=== PATIENT | female | born 1960 | race Caucasian/White ===

== ENCOUNTER 2019-09-20 03:59 | Emergency (ER) | payer OTHER, MEDICARE, SELFPAY ==
[2019-09-20] VITALS (14 sets, daily range): BP systolic 134–178; BP diastolic 76–88; PULSE 56–92; RESP 11–16; TEMP 36.4–37.1; O2SAT 93–100; BMI 41.9; BMI 42.7
--- NOTE | 2019-09-20 04:00 | XR_ITS ---
PROCEDURE: XR CHEST PORTABLE CLINICAL HISTORY: fall during seizure Posttraumatic pain COMPARISON: No exams were available for comparison FINDINGS: Mild cardiomegaly without failure. There is a nasogastric tube present. The tip the tube is not covered on the film but is below the GE junction. No lobar consolidation or collapse. There are low lung volumes. No acute bony abnormalities. IMPRESSION: Cardiomegaly with NG tube present. Dictated by: Dakota Huff MD 09/20/2019 07:58 Electronically signed by Dakota Huff MD in [facility] 09/20/2019 07:58
--- NOTE | 2019-09-20 04:00 | XR_ITS ---
PROCEDURE: XR PELVIS 1-2V CLINICAL INDICATION: fall during seizure Posttraumatic pain, trauma protocol COMPARISON: No exams were available for comparison TECHNIQUE: XR Pelvis AP View FINDINGS: No fracture or dislocation is evident. No significant degenerative change. Sanchez catheter is present IMPRESSION: No acute findings. Dictated by: Dakota Huff MD 09/20/2019 07:57 Electronically signed by Dakota Huff MD in [facility] 09/20/2019 07:57
--- NOTE | 2019-09-20 04:00 | CT_ITS ---
PROCEDURE: CT HEAD/BRAIN WO CON CLINICAL INDICATION: ams, seizures Altered mental status, altered level of consciousness, confusion, disorientation, history of surgery and aneurysm COMPARISON: CT CERVICAL SPINE WO CON from 09/20/2019 TECHNIQUE: Axial images obtained. All CT scans at the facility use one or more dose reduction, viz: automated exposure control, ma/kV adjustment per patient size (including targeted exams where dose is matched to indication, i.e. head), or iterative reconstruction technique. FINDINGS: There has been prior right temporal craniectomy. Artifact is present from aneurysm clips in the sellar region. No midline shift, mass effect, intracranial hemorrhage, or hydrocephalus is evident. There is a nasogastric tube and an endotracheal tube present. IMPRESSION: 1. Postsurgical changes. 2. No acute intracranial findings. Dictated by: Dakota Huff MD 09/20/2019 10:24 Electronically signed by Dakota Huff MD in [facility] 09/20/2019 10:24
--- NOTE | 2019-09-20 04:01 | ECG_ITS ---
APPROVED REPORT Exam: Resting ECG HR:66 bpm ECG Measurements Heart Rate 66 AXES NV 162 P 56 QRSd 98 QRS -77 QT 462 T 14 QTc 484 <Conclusion> Sinus rhythm with premature ventricular complexes or fusion complexes Left axis deviation Cannot rule out Anterior infarct, age undetermined Abnormal ECG Electronically signed by : Jose Vieira, 09/20/2019 15:34:08
--- NOTE | 2019-09-20 04:01 | PC.NURSE ---
radiology notified of ct head and orders. spoke with jaqueline
--- NOTE | 2019-09-20 04:01 | CT_ITS ---
PROCEDURE: CT CERVICAL SPINE WO CON CLINICAL INDICATION: fall during seizure Neck injury with pain, contusion/abrasion or hematoma, cervical sprain/strain the COMPARISON: No exams were available for comparison TECHNIQUE: Axial images obtained with sagittal and coronal reformats. All CT scans at the facility use one or more dose reduction, viz: automated exposure control, ma/kV adjustment per patient size (including targeted exams where dose is matched to indication, i.e. head), or iterative reconstruction technique. Axial spiral CT scanning performed of the cervical spine beginning at the base of the skull and continuing to the upper T-spine. 3-D multiplanar reconstruction with 3-D manipulation of volumetric data set in image rendering was completed by the radiologist and/or technologist with the supervision of the radiologist on independent workstation. FINDINGS: Normal alignment. No acute fracture or dislocation. Degenerative disc disease C5-C6 and C6-C7. There is canal stenosis at both levels with mild bilateral foraminal narrowing. There is a nasogastric tube present. There is also a cannula extending from the right nostril into the oropharynx. Lung apices are clear. IMPRESSION: 1. No acute fracture. 2. Degenerative changes Dictated by: Dakota Huff MD 09/20/2019 10:28 Electronically signed by Dakota Huff MD in [facility] 09/20/2019 10:28
--- NOTE | 2019-09-20 04:05 | PC.NURSE ---
pt to radiology, consumer insights specialist at bedside
--- NOTE | 2019-09-20 04:06 | PC.NURSE ---
NG tube placed into left nare by RONN Torres Nasal trumpet inserted by RONN Torres into right nare
--- NOTE | 2019-09-20 04:08 | PC.NURSE ---
spoke with antonia, pharmacy re: silvia marques
--- NOTE | 2019-09-20 04:11 | PC.NURSE ---
pt is unresponsive to painful stimuli at this time and is unable to communicate or answer history questions
[2019-09-20 04:14] LABS: Microscopic, Urine URINE MICROSCOPIC (MICROSCOPIC)
[2019-09-20 04:15] LABS: ABG Base Excess -7.1 mmol/L (-2.4-2.3); ABG HCO3 20.5 mmhg (22.0-26.0); ABG Oxygen Saturation 98 % (90-100); ABG PH 7.22 mmol/L (7.35-7.45); ABG PO2 141.3 mmhg (80-100); ABG TCO2 22.1 mmhg (23-27)
[2019-09-20 04:16] LABS: Oxygen 100% NRB %
[2019-09-20 04:17] LABS: Allen's Test Patient Unable; Source Right Radial
--- NOTE | 2019-09-20 04:17 | [facility].EDSEIZ ---
ED Disposition Clinical Impression: Seizure, New onset seizure Disposition: Xfer Short-Term Hosp Condition on Discharge: Serious Instructions: DI for Seizure Disorder -- Adult, DI for Seizure (Not Epilepsy/Seizure Disorder), DI for Seizure Disorder -- Child Referrals: Provider,Referral, [Primary Care Provider] - - Critical Care Critical Care Time: Yes Attestation: On , the high probability of a clinically significant, sudden or life threatening deterioration of the following system(s) required my full and direct attention, intervention and personal management. The time I documented below is in addition to time spent performing reported procedures but includes the following listed in this critical care notation. Total Critical Care Time: 90 Vital system(s) involved:: Central Nervous System My critical care processes included: Assessment & monitoring of V/S, Initial and Re-exams, Data Review/Interpretation, Coordinating Care, Medication Orders and management, Documentation Medical Decision Making - Medical Records Medical records reviewed: Yes: I reviewed the patient's medical records. - Edgard Inquiry Pt receiving controlled substance: No Vital Signs: 09/20/19 03:59 09/20/19 04:30 09/20/19 05:00 Temperature 97.6 F Temperature Source Rectal Pulse Rate [Left Radial] 79 67 92 H Respiratory Rate 16 12 12 Blood Pressure [Right Arm] 173/81 H 144/83 H 134/79 Blood Pressure Mean [Right Arm] 111 103 97 Blood Pressure Source [Right Arm] Automatic Cuff Automatic Cuff Automatic Cuff Blood Pressure Position [Right Arm] Sitting Supine 02 Sat by Pulse Oximetry 96 99 94 L Oxygen Delivery Method Non-Rebreather Non-Rebreather Venturi Mask Oxygen Flow Rate (LPM) 15 12 09/20/19 05:15 09/20/19 05:30 09/20/19 05:45 Temperature Temperature Source Pulse Rate [Left Radial] 70 68 65 Respiratory Rate 12 16 14 Blood Pressure [Right Arm] 151/76 H 150/78 H 156/80 H Blood Pressure Mean [Right Arm] 101 102 105 Blood Pressure Source [Right Arm] Automatic Cuff Automatic Cuff Manual Cuff/ Auscultation Blood Pressure Position [Right Arm] Supine Sitting Supine 02 Sat by Pulse Oximetry 93 L 93 L 95 Oxygen Delivery Method Venturi Mask Trach Collar/ Tube Venturi Mask Oxygen Flow Rate (LPM) 12 12 09/20/19 06:00 09/20/19 06:17 09/20/19 06:37 Temperature Temperature Source Pulse Rate [Left Radial] 67 62 60 Respiratory Rate 16 15 16 Blood Pressure [Right Arm] 151/88 H 163/88 H 153/87 H Blood Pressure Mean [Right Arm] 109 113 109 Blood Pressure Source [Right Arm] Automatic Cuff Automatic Cuff Automatic Cuff Blood Pressure Position [Right Arm] Sitting Sitting Supine 02 Sat by Pulse Oximetry 97 95 96 Oxygen Delivery Method Venturi Mask Venturi Mask Venturi Mask Oxygen Flow Rate (LPM) 12 12 09/20/19 07:01 09/20/19 07:30 Temperature Temperature Source Pulse Rate [Left Radial] 56 L 57 L Respiratory Rate 11 L Blood Pressure [Right Arm] 145/84 H 141/83 H Blood Pressure Mean [Right Arm] 104 102 Blood Pressure Source [Right Arm] Automatic Cuff Automatic Cuff Blood Pressure Position [Right Arm] Sitting Supine 02 Sat by Pulse Oximetry 95 94 L Oxygen Delivery Method Venturi Mask Venturi Mask Oxygen Flow Rate (LPM) 12 12 - Lab Data Lab results reviewed: Yes: I reviewed the patient's lab results. Lab Results 09/20/19 04:00: Urine Color Yellow, Urine Appearance Clear, Urine pH 5.5, Ur Specific [place] 1.010, Urine Protein Trace, Urine Glucose (UA) 3+, Urine Ketones Negative, Urine Blood Trace-l, Urine Nitrate Negative, Urine Bilirubin Negative, Urine Urobilinogen 0.2, Ur Leukocyte Esterase Negative, Urine RBC 3-5, Urine WBC Occasional, Urine Bacteria Trace 09/20/19 04:00: WBC 6.8, RBC 4.90, Hgb 16.4 H, Hct 50.0 H, MCV 102.0 H, MCH 33.4 H, MCHC 32.8, RDW 13.8, Plt Count 133 L, MPV 9.0, Neut % (Auto) 67.7, Lymph % (Auto) 24.0, [place] % (Auto) 5.3, Eos % (Auto) 1.8, Baso % (Auto) 1.2, Neut # (Auto) 4.6, Lymph # (Auto) 1.6, M
[2019-09-20 04:18] LABS: ABG PCO2 50.8 mmhg (35.0-45.0)
[2019-09-20 04:19] LABS: Appearance,Urine CLEAR (Clear); Bilirubin,Urine Negative (Negative); Blood, Urine TRACE-L (Negative); Color,Urine YELLOW (Yellow); Glucose,Urine (UA) 3+ (Negative); Ketones,Urine Negative (Negative); Leukocyte Esterase,Urine Negative (Negative); Nitrate,Urine Negative (Negative); PH,Urine 5.5 (5.0-8.5); Protein,Urine TRACE (Negative); Urobilinogen,Urine 0.2 EU/dl (0.2)
[2019-09-20 04:21] LABS: Chloride 101 mmol/L (98-107)
[2019-09-20 04:22] LABS: Potassium 4.8 mmoL/L (3.5-5.1); Sodium 139 mmol/L (136-145)
[2019-09-20 04:23] LABS: Basophils # 0.1 K/mm3 (0-0.2); Basophils % 1.2 % (0.1-2.0); Eosinophils # 0.1 K/mm3 (0.0-0.4); Eosinophils % 1.8 % (0.1-12.0); Hemoglobin 16.4 g/dL (12.2-16.2); Lymphocytes # 1.6 K/mm3 (0.7-4.5); Mean Corpuscular HGB Conc 32.8 g/dL (31.8-35.4); Mean Corpuscular Hemoglobin 33.4 pg (27.0-31.2); Monocytes # 0.4 K/mm3 (0.1-1.0); Monocytes % 5.3 % (1.7-9.3); Neutrophils # 4.6 K/mm3 (1.8-7.8); Neutrophils % 67.7 % (37.0-80.0); Platelet Count 133 K/mm3 (142-424); Red Cell Distribution Width 13.8 % (11.5-17.5); White Blood Count 6.8 K/mm3 (4.8-10.8)
[2019-09-20 04:24] LABS: Alanine Aminotransferase 56 U/L (12-78); Alkaline Phosphatase 129 U/L (38-126); Anion Gap 17.8 mEq/L (5-15); Aspartate Amino Transferase 72 U/L (14-36); Bilirubin,Total 0.6 mg/dl (0.2-1.3); Blood Urea Nitrogen 15 mg/dl (7-17); Calcium 9.3 mg/dl (8.4-10.2); Carbon Dioxide 25 mmol/L (22.0-30.0); Creatinine Clearance Estimated 65 mL/min (50-200); Estimated Glomerular Filt Rate 65 ml/min (>60); GFR (African American) 78 ML/MIN (>60)
[2019-09-20 04:25] LABS: Albumin Level 4.2 g/dl (3.5-5.0); Albumin/Globulin Ratio 1.6 (1.1-1.8); Globulin 2.7 g/dL (1.3-3.2); Total Protein,Serum 6.9 g/dl (6.3-8.2)
[2019-09-20 04:28] LABS: Acetaminophen < 10 ug/ml (10-30); Salicylate < 1.0 mg/dL (2.0-20.0)
[2019-09-20 04:29] LABS: Ethyl Alcohol < 10 mg/dl (0-10); Glucose 583 mg/dl (74-100)
[2019-09-20 04:30] LABS: Amphetamine/Metha Screen,Urine Negative ng/ml (<1000)
[2019-09-20 04:31] LABS: Barbiturates Screen,Urine Negative ng/ml (<200); Benzodiazepines Screen,Urine Negative ng/ml (<200)
--- NOTE | 2019-09-20 04:31 | PC.NURSE ---
informed of pt critical blood glucose
[2019-09-20 04:32] LABS: Cannabinoid Screen,Urine Negative ng/ml (<50); Cocaine Screen,Urine Negative ng/ml (<300)
[2019-09-20 04:33] LABS: Methadone Screen,Urine Negative ng/ml (<300)
[2019-09-20 04:34] LABS: Opiate Screen,Urine Positive ng/ml (<300)
--- NOTE | 2019-09-20 04:34 | PC.NURSE ---
pt at bedside, pt reports diabetes, HTN, neuropathy, hypothyroidism, depression and reports being on blood thinners.
[2019-09-20 04:35] LABS: Phencyclidine Screen,Urine Negative ng/ml (<25)
[2019-09-20 04:42] LABS: Troponin I 0.05 ng/ml (0.00-0.034)
--- NOTE | 2019-09-20 04:42 | PC.NURSE ---
on phone with vrad at this time.
--- NOTE | 2019-09-20 04:43 | PC.NURSE ---
pt back from radiology
--- NOTE | 2019-09-20 04:45 | PC.NURSE ---
calling [facility] for transfer
--- NOTE | 2019-09-20 04:46 | PC.NURSE ---
awaiting for neurology to call back.
--- NOTE | 2019-09-20 04:48 | PC.NURSE ---
report called to RONN Stein
[2019-09-20 04:49] LABS: Coronavirus 19 IgG Antibody Negative (Negative); Coronavirus 19 IgM Antibody Negative (Negative)
[2019-09-20 04:54] LABS: Bacteria,Urine Trace /lpf; WBC,Urine Occasional #/hpf (0-3)
--- NOTE | 2019-09-20 04:56 | PC.NURSE ---
waiting to hear back from [employer] who is calling around for other flight options due to fog
--- NOTE | 2019-09-20 05:01 | PC.NURSE ---
switched pt over to 40% venture mask at 12lpm per request of dr swan
[2019-09-20 05:03] LABS: Acetone, Serum (Rapid) None Detected (None Detect)
--- NOTE | 2019-09-20 05:04 | PC.NURSE ---
on phone with dr. castelan from neurology at [facility]
--- NOTE | 2019-09-20 05:07 | PC.NURSE ---
pt is beginning to respond to painful stimuli at this time but is still unable to respond verbally or to commands.
--- NOTE | 2019-09-20 05:08 | PC.NURSE ---
pt is beginning to become restless and is reaching for her NG tibe and airway. medication given for comfort
--- NOTE | 2019-09-20 05:12 | PC.NURSE ---
calling [facility] now
--- NOTE | 2019-09-20 05:15 | PC.NURSE ---
awaiting for dr. [facility] to get on the line.
--- NOTE | 2019-09-20 05:22 | PC.NURSE ---
denied from [facility] admission
--- NOTE | 2019-09-20 05:22 | PC.NURSE ---
is on diversion at this time. calling [facility] at this time.
--- NOTE | 2019-09-20 05:25 | PC.NURSE ---
consulting [facility] for pt transfer
--- NOTE | 2019-09-20 05:25 | PC.NURSE ---
call placed to [facility] patient logistics: [phone], asad. requested neuro icu resident.
--- NOTE | 2019-09-20 05:48 | PC.NURSE ---
received call back from e; requested they call back in 15-30 mins due to physician responding to a rapid response on the med/surg floor.
--- NOTE | 2019-09-20 06:45 | PC.NURSE ---
called [facility] pt logistics line and spoke again with title insurance sales representative. she stated they understood about our delay and would have the rounding practitioner paged.
--- NOTE | 2019-09-20 07:22 | PC.NURSE ---
dr pierson with neurology accepted patient. waiting on hospitalist at this time tocall back.
--- NOTE | 2019-09-20 07:38 | PC.NURSE ---
cancelled troponin per md verbal order. waiting on hospitalist to call back.
--- NOTE | 2019-09-20 08:00 | PC.NURSE ---
Dr Tejeda accepted pt transfer to [facility], stated they would kristen back with a bed assignment and information on giving report.
--- NOTE | 2019-09-20 08:20 | PC.NURSE ---
Addendum entered by Shanna Burr RN 09/20/19 08:57: Remains on 40% venti mask, RT at beside as well assessing pt. Original Note: Pt remains postical at this time, pt becomes agitated when aroused, verbal order of ativan given per ED MD. Pt GCS of 11. Pt airway stable at this time, nasal trumpet remains in right nare, 16F NG remains in left nare to LWS, brown gastric contents noted to NG output, NG clamped at this time r/t awaiting for [employer] to arrive. at bedside, update on POC given. VSS. Will continue to monitor.
--- NOTE | 2019-09-20 08:23 | PC.NURSE ---
gave report to Allie Torrez RN at [facility]
--- NOTE | 2019-09-20 08:34 | PC.NURSE ---
[place] [facility] accepted flight. Notified house and EVS
--- NOTE | 2019-09-20 08:41 | PC.NURSE ---
Notified of plan to transfer to [facility] by flight and room assignment, agreeable
[2019-09-20 08:44] LABS: POC Glucose,Bedside 429 (70-110)
--- NOTE | 2019-09-20 08:45 | PC.NURSE ---
[employer] [facility] in flight with an ETA of 10mins
--- NOTE | 2019-09-20 09:09 | PC.NURSE ---
Report given to [employer] at this time, pt being loaded up and transported at this time.
--- NOTE | 2019-09-20 09:30 | PC.NURSE ---
[employer] [facility] still at beside, currently intubating pt
--- NOTE | 2019-09-20 09:33 | PC.NURSE ---
Notified Valerie Klein that will be taking over pt care when she arrives that pt was intubated in route to their facility
--- NOTE | 2019-09-20 09:38 | PC.NURSE ---
[facility] Ele[facility] called back and stated [facility] must wait at our facility until they get the pt an ICU bed, Wild Gonzalez and Laureen RN on [employer] notified. [employer] remain at bedside with pt currently on their vent settings and monitor. Awaiting call back from charge nurse at [facility] for bed assignment
--- NOTE | 2019-09-20 09:45 | PC.NURSE ---
Barbara the bed coordinator called back to notify that they are waiting for an accepting MD for pt to be admitted to ICU, stated they would call back in a few minutes, [employer] notified.
--- NOTE | 2019-09-20 09:56 | PC.NURSE ---
speaking with ICU physician at [facility]
--- NOTE | 2019-09-20 10:03 | PC.NURSE ---
ICU MD Dr. Menon accepted pt to ICU
--- NOTE | 2019-09-20 10:09 | PC.NURSE ---
Report given to Keara Ennis in SICU, [employer] notified of pt being loaded up at this time, notified of pt change in condition.
== END 2019-09-20 10:15 | disposition short-term general hospital (02) ==
PROVIDERS: Emergency Provider Emergency Medicine
DX: G40.909 Epilepsy, unspecified, not intractable, without status epilepticus (principal); R73.9 Hyperglycemia, unspecified; I10 Essential (primary) hypertension; Z79.899 Other long term (current) drug therapy; Z86.73 Personal history of transient ischemic attack (TIA), and cerebral infarction without residual deficits
CPT/HCPCS: 70450; 71045; 72125; 72170; 80053; 80305; 80329; 81001; 82009; 82803; 82962; 84484; 85025; 86328; 93005; 96365; 96366; 96367; 96375; 96376; 99285; J1953